=== PATIENT | female | born 1990 | race Caucasian/White ===

== ENCOUNTER 2024-09-29 09:57 | Emergency (ER) | payer SELFPAY ==
[2024-09-29 09:58] VITALS: BP 91/76; PULSE 92; RESP 16; TEMP 36.6; O2SAT 100; BMI 23.3
--- NOTE | 2024-09-29 10:14 | ED_ITS ---
HPI - 2 General: Chief complaint: Vaginal Bleeding Stated complaint: 16 wks preg spotting Time Seen by Provider: 09/29/24 09:58 Source: patient and EMS Mode of arrival: EMS Limitations: no limitations History of Present Illness: 34-year-old female who states she believ es she is possibly 16 weeks but states she has not had any care and is unsure. States today she had some spotting she denies any pain she denies any heavy bleeding denies any fever she had a history of multiple miscarriages in the past Associated symptoms: Deny abdominal pain, headache(s), nausea or vomiting Review of Systems 2 Const: Denies: fever(s), chills, body aches or change in appetite ENMT: Denies: throat pain or dental pain Card: Denies: chest pain Resp: Denies: dyspnea GI: Denies: abdominal pain, nausea, vomiting or diarrhea : Reports: vaginal bleeding Musc: Denies: neck pain or back pain Skin/Breast: Denies: rash Neuro: Denies: headache(s) Physical Exam 2 Const: COMMON NORMALS: no acute distress, patient oriented x3 and healthy appearing HENMT: COMMON NORMALS: normocephalic and atraumatic HEAD & SCALP: n ormocephalic and atraumatic Eye: COMMON NORMALS: conjunctivae normal CONJUNCTIVA: Yes conjunctivae normal Neck/C-Spine: COMMON NORMALS: full ROM and supple Chest: COMMONS NORMALS: normal inspection of the chest and normal palpation of entire chest wall Resp: COMMON NORMALS: normal respiratory effort, No retractions, No use of accessory muscles and clear to auscultation bilaterally AUSCULTATION: clear to auscultation bilaterally Cardio: COMMON NORMALS: regular rate, regular rhythm and No murmurs present (Cardio) RATE: regular rate RHYTHM: regular rhythm GI: COMMON NORMALS: Normal to inspection, nondistended, normoactive bowel sounds present, Soft to palpation, non-tender and no masses PALPATION: Yes Soft to palpation Extremity: COMMON NORMALS: normal to inspection and full ROM Neuro: COMMON NORMALS: patient oriented x3, moves all extremities and no focal motor deficits Psych: COMMON NORMALS: mental status grossly normal, Normal thought process present and cooperative THOUGHT PROCESS: Normal thought process present Skin: COMMON NORMALS: no rashes or lesions noted and no wounds GENERAL SKIN EXAM: no rashes or lesions noted Course 2 Vital Signs: Vital signs: Vital Signs Temperature 97.9 F 09/29/24 09:58 Pulse Rate 92 09/29/24 09:58 Respiratory Rate 16 09/29/24 09:58 Blood Pressure 91/76 09/29/24 09:58 Pulse Oximetry 100 09/29/24 09:58 Oxygen Delivery Me thod Room Air 09/29/24 09:58 MDM - OB/Uterine Contractions Medical Decision Making Patient presents here the vaginal bleeding is likely on her menstruation her test here is negative she is not currently she is well- appearing here she stable for discharge return if worsening Medical Records I reviewed the patient's medical records. Lab Data I reviewed the patient's lab results. 09/29/24 10:07 Laboratory Results WBC 6.46 10^3/uL (3.29-11.43) 09/29/24 10:07 RBC 4.22 10^6/uL (3.85-5.65) 09/29/24 10:07 Hgb 12.40 g/dL (11.27-16.99) 09/29/24 10:07 Hct 36.3 % (36-47) 09/29/24 10:07 MCV 86.0 fl (85-98) 09/29/24 10:07 MCH 29.4 pg (27-33) 09/29/24 10:07 MCHC 34.2 g/dL (30-55) 09/29/24 10:07 RDW 12.7 % (12.1-15.1) 09/29/24 10:07 Plt Count 304 10^3/cmm (157-399) 09/29/24 10:07 MPV 8.8 fL (7.4-10.4) 09/29/24 10:07 Neut % (Auto) 54.4 % 09/29/24 10:07 Lymph % (Auto) 35.1 % 09/29/24 10:07 [place] % (Auto) 6.3 % 09/29/24 10:07 Eos % (Auto) 1.9 % 09/29/24 10:07 Baso % (Auto) 0.6 % 09/29/24 10:07 Neut # (Auto) 3.51 10^3/uL (1.8-7.7) 09/29/24 10:07 Lymph # (Auto) 2.3 10^3/uL (0.8-4.8) 09/29/24 10:07 Monroe # (Auto) 0.4 10^3/uL (0.2-0.9) 09/29/24 10:07 Eos # (Auto) 0.1 10^3/uL (0.0-0.8) 09/29/24 10:07 Baso # (Auto) 0.0 10^3/uL (0.0-0.1) 09/29/24 10:07 Nucleated RBC % (auto) 0 % 09/29/24 10:07 Nucleated RBCs # 0.0 /100WBC 09/29/24 10:07 Ser , Semi-Qnt < 1.00 mIU/mL 09/29/24 10:11 No radiology studies performed this visit Discharge Plan Discharge Patient Disposition: Home Clinical Impression: Vaginal bleeding Condition: Stable Discharge Orders: Discharge ED (Routine); Ordered 09/29/24 Ordered By: Lauren Peterson Discharge Diet: Advance as tolerated Discharge Activity: Limit activity as instructed Patient Instructions: Abnormal (Dysfunctional) Uterine Bleeding (ED) Print Language: Kyrgyz Coding Level of Care Code ED [employer] Supervisor for Tatiana Lechuga
[2024-09-29 10:21] LABS: Hematocrit 36.3 % (36-47); Hemoglobin 12.40 g/dL (11.27-16.99); Mean Corpuscular HGB Conc 34.2 g/dL (30-55); Mean Corpuscular Hemoglobin 29.4 pg (27-33); Mean Corpuscular Volume 86.0 fl (85-98); Nucleated Red Blood Cells % 0 %; Platelet Count 304 10^3/cmm (157-399); Red Blood Count 4.22 10^6/uL (3.85-5.65); White Blood Count 6.46 10^3/uL (3.29-11.43)
[2024-09-29 10:56] VITALS: BP 119/80; PULSE 78; O2SAT 99
== END 2024-09-29 10:56 | disposition home or self-care (01) ==
PROVIDERS: Emergency Provider Emergency Medicine
DX: N93.9 Abnormal uterine and vaginal bleeding, unspecified (principal)
CPT/HCPCS: 36415; 84702; 85025; 86850; 86900; 99283